=== PATIENT | male | born 1945 | race Caucasian/White ===

== ENCOUNTER 2019-12-06 06:33 | Emergency (ER) | payer MEDICARE ==
[~2019-12-06] VITALS: Ht 180.3 cm; Wt 76.9 kg
[2019-12-06 06:41] VITALS: BP 190/114
--- NOTE | 2019-12-06 07:18 | NUR ---
PT WITH CHEST DISCOMFOR IN R CHEST ARM AREA, STATES PAIN HAS COME AND GONE FOR THE LAST WEEK. RASH NOTED TO CENTER OF UPPPER STOMACH, PRESENT FOR 5 DAYS PER PT REPORT PT TO ALL MONITORING EQUIPMENT, ERMD IN TO EVAL PT
== END 2019-12-06 08:28 | disposition home or self-care (01) ==
LOC: ED 07:34
DX: B02.9 Zoster without complications (principal); I10 Essential (primary) hypertension; R07.89 Other chest pain; R21 Rash and other nonspecific skin eruption
CPT/HCPCS: 93005; 99283